=== PATIENT | female | born 1950 | race African-American/Black ===

== ENCOUNTER 2020-02-17 07:10 | Emergency (ER) | payer MEDICARE, BC ==
[~2020-02-17] VITALS: Ht 162.6 cm; Wt 93.0 kg
[2020-02-17 09:42] VITALS: BP 135/82
== END 2020-02-17 09:42 | disposition home or self-care (01) ==
LOC: ER 07:10
DX: L03.114 Cellulitis of left upper limb (principal); I10 Essential (primary) hypertension; Z90.710 Acquired absence of both cervix and uterus; Z90.49 Acquired absence of other specified parts of digestive tract; Z88.5 Allergy status to narcotic agent
CPT/HCPCS: 93971; 99284

== ENCOUNTER 2024-10-22 06:45 | Emergency (ER) | payer MEDICARE, BC ==
[~2024-10-22] VITALS: Ht 162.6 cm; Wt 114.0 kg
[2024-10-22 06:56] VITALS: O2SAT 100
[2024-10-22] MEDS: LIDOCAINE 5% PATCH TOP SCH (08:15)
[2024-10-22] MEDS: METHOCARBAMOL 500MG TABLET PO ONE (08:15)
[2024-10-22] MEDS: KETOROLAC 30MG/ML VIAL IM ONE (08:15)
[2024-10-22] MEDS: HYDROCODONE/ACETAMINOPHEN 5/325MG TABLET PO ONE (08:16)
[2024-10-22 08:51] LABS: BASOPHILS % 0.5 % (0.0-2.0); DIFFERENTIAL COMMENT 0; EOSINOPHILS % 1.5 % (0.0-5.0); HEMATOCRIT. 34.4 % (36.0-48.0); HEMOGLOBIN. 10.8 g/dL (12.0-16.0); LYMPHOCYTES % 18.5 % (20.0-50.0); MEAN CORPUSCULAR HEMOGLOBIN 24.6 pg (28.0-32.0); MEAN CORPUSCULAR HGB CONC 31.4 g/dL (31.0-37.0); MEAN CORPUSCULAR VOLUME 78.3 fL (81.0-99.0); MONOCYTES % 6.5 % (2.0-8.0); PLATELET 217 x1000/uL (130-400); RED CELL DISTRIBUTION WIDTH 16.9 % (11.6-14.6); WHITE BLOOD COUNT 9.6 x1000/uL (4.5-11.0)
[2024-10-22 08:57] LABS: PROTHROMBIN TIME 10.7 sec (9.6-11.0)
[2024-10-22 08:58] LABS: CARBON DIOXIDE 33 mEq/L (21-32); CHLORIDE 103 mEq/L (98-107); POTASSIUM 3.3 mEq/L (3.5-5.1); SODIUM 141 mEq/L (136-145)
[2024-10-22 08:59] LABS: CALCIUM 9.6 mg/dL (8.7-10.4)
[2024-10-22 09:04] LABS: GLUCOSE 101 mg/dL (70-105); TROPONIN I HIGH SENSITIVITY 14 ng/L (3.0-34); UREA NITROGEN BLOOD 12 mg/dL (9-23)
[2024-10-22 09:32] VITALS: BP 184/77; PULSE 63; RESP 16; TEMP 36.61404; O2SAT 98
[2024-10-22] MEDS ORDERED: HYDR-4001 MT (10:12)
[2024-10-22] MEDS ORDERED: LIDO700A15 TP (10:12)
[2024-10-22] MEDS ORDERED: METH-653 MT (10:12)
[2024-10-22] MEDS: POTASSIUM CHLORIDE 20MEQ TABLET SR PO ONE (10:29)
== END 2024-10-22 10:33 | disposition home or self-care (01) ==
LOC: ER 07:00
DX: M25.512 Pain in left shoulder (principal); I10 Essential (primary) hypertension; Z88.5 Allergy status to narcotic agent; Z90.710 Acquired absence of both cervix and uterus; Z90.49 Acquired absence of other specified parts of digestive tract
CPT/HCPCS: 99285; 71045; 80048; 83880; 85025; 85610; 84484; 36415; 73030; 93005; 96372; J1885